=== PATIENT | male | born 1980 | race Caucasian/White ===

== ENCOUNTER 2019-05-10 05:22 | Emergency (ER) | payer SELFPAY ==
--- NOTE | 2019-05-10 06:25 | ER ---
Nurse's Notes [facility] Name: Gilbert Breaux Age: 39 yrs Sex: Male : 1980 Arrival Date: 05/10/2019 Time: 05:23 Bed 13 Private MD: Diagnosis: Superficial injury of head;Alcohol abuse with intoxication Presentation: 05/10 05:20 Presenting complaint: states: that pt was drinking a lot of alcohol and passed fc out, hitting right forehead on ground causing abrasion. Pt very loud and verbally abusive. Transition of care: patient was not received from another setting of care. Onset of symptoms was May 10, 2019 at 04:30. Risk Assessment: Do you want to hurt yourself or someone else? Patient reports no desire to harm self or others. Initial Sepsis Screen: Does the patient meet any 2 criteria? HR > 90 bpm. Yes Does the patient have a suspected source of infection? No. Patient's initial sepsis screen is negative. Care prior to arrival: IV initiated. 18 GA, in the right antecubital area. 05:20 Method Of Arrival: EMS: [facility] 05:20 Acuity: CHARMAINE 2 fc 05:20 Mechanism of Injury: Fall from standing position. Trauma event details: Injury occurred in the [facility], Injury occurred: at home. Injury occurred: May 10, 2019 Injury occurred at: 04:30. Trauma Activation: Alert Physician: ED Physician; Name: Jimmie; Notified At: 05:29; Arrived At: 05:29 Physician: General Surgeon; Name: ; Notified At: 05:29; Arrived At: Physician: Radiology; Name: Lila; Notified At: 05:29; Arrived At: 05:32 Physician: Respiratory; Name: Alex; Notified At: 05:29; Arrived At: 05:31 Physician: Lab; Name: ; Notified At: 05:29; Arrived At: Historical: - Allergies: 05:37 No Known Allergies; fc - Home Meds: 05:37 None [Active]; fc - PMHx: 05:37 None; fc - PSHx: 05:37 right eye surg; right hand surg; fc - Immunization history:: Last tetanus immunization: up to date. - Social history:: Smoking status: Patient uses tobacco products, smokes one pack cigarettes per day. Patient uses alcohol, occasionally. Patient/guardian denies using street drugs. - Immunization history: Last tetanus immunization: - up to date. - Ebola Screening: : Patient negative for fever greater than or equal to 101.5 degrees Fahrenheit, and additional compatible Ebola Virus Disease symptoms Patient denies exposure to infectious person Patient denies travel to an Ebola-affected area in the 21 days before illness onset. Screenin:20 Abuse screen: Denies threats or abuse. Nutritional screening: No deficits noted. fc Tuberculosis screening: No symptoms or risk factors identified. 05:20 Fall Risk Fall in past 12 months (25 points). IV access (20 points). Gait- Impaired (20 jb4 pts.). Mental Status- Overestimates/Forgets Limitations (15 pts.). Total Azevedo Fall Scale indicates High Risk Score (45 or more points). Fall prevention measures have been instituted. Side Rails Up X 2 Placed Close to Nursing Station Frequent Obs/Assessments Occuring Family Present and informed to notify staff if the need to leave the bedside As available patient and family educated on Fall Prevention Program and Strategies. Assessment: 05:40 General: Appears in no apparent distress. uncomfortable, Behavior is agitated, crying, jb4 uncooperative, Smells of alcohol. Pain: Complains of pain in forehead Pain does not radiate. Pain currently is 5 out of 10 on a pain scale. Neuro: Level of Consciousness is awake, alert, Oriented to person, place, time, situation. Cardiovascular: Patient's skin is warm and dry. Respiratory: Airway is patent Respiratory effort is even, unlabored, Respiratory pattern is regular, symmetrical. GI: No signs and/or symptoms were reported involving the gastrointestinal system. : No signs and/or symptoms were reported regarding the genitourinary system. EENT: No signs and/or symptoms were reported regarding the EENT system. Derm: Skin Laceration to the scalp. Skin is pink, warm \T\ dry. Musculoskeletal: Circulation, motion, and sensation intact. Range of motion: intact in all extremities. Injury Description: Laceration sustained to forehead is superficial, 0.5 to 2.5 cm long, not bleeding. 06:12 Reassessment: Patient appears in no apparent distress at this time. Patient and/or jb4 family updated on plan of care and expected duration. Pain level reassessed. Pt verbalized refusal to stay in ED, agreed to take patient home and watch over him. informed of the need for the patient to stay, informed that worsening of symptoms and or could occur, informed of symptoms to watch for and instructed to take patient to the nearest emergency medical facility if worsening of symptoms occurs. Pt's verbalized an understanding of instructions and information, pt and informed of the importance of CT scan to identify possible head bleeds, pt continues to refuse to want to stay in ED, agreed to take him home with friends. pt removed monitoring devices, AMA formed signed by pt's , pt left ED to [facility] waiting area ambulatory with unsteady swaying gait, waited for in [facility]. Vital Signs: 05:20 BP 143 / 91; Pulse 93; Resp 18; Temp 98.4(O); Pulse Ox 96% on R/A; Weight 77.11 kg (R); fc Height 5 ft. 8 in. (172.72 cm) (R); Pain 8/10; 06:02 BP 111 / 48; Pulse 73; Resp 18; Pulse Ox 97% on R/A; jb4 05:20 Body Mass Index 25.85 (77.11 kg, 172.72 cm) fc Luis Coma Score: 05:20 Eye Response: spontaneous(4). Verbal Response: oriented(5). Motor Response: obeys fc commands(6). Total: 15. 06:02 Eye Response: spontaneous(4). Verbal Response: oriented(5). Motor Response: obeys jb4 commands(6). Total: 15. Trauma Score (Adult): 05:20 Eye Response: spontaneous(1); Verbal Response: oriented(1); Motor Response: obeys fc commands(2); Systolic BP: > 89 mm Hg(4); Respiratory Rate: 10 to 29 per min(4); Luis Score: 15; Trauma Score: 12 06:02 Eye Response: spontaneous(1); Verbal Response: oriented(1); Motor Response: obeys jb4 commands(2); Systolic BP: > 89 mm Hg(4); Respiratory Rate: 10 to 29 per min(4); [place] Score: 15; Trauma Score: 12 ED Course: 05:20 Arm band placed on Patient placed in an exam room, on a stretcher. fc 05:20 Patient has correct armband on for positive identification. Bed in low position. Call fc light in reach. Side rails up X2. Pulse ox on. NIBP on. 05:20 Maintain EMS IV. Dressing intact. Good blood return noted. Site clean \T\ dry. Gauge \T\ fc site: 18 gauge to right a/c. 05:20 Patient maintains SpO2 saturation greater than 95% on room air. Thermoregulation: warm fc blanket given to patient. 05:23 Patient arrived in ED. ds1 05:33 Triage completed. fc 05:45 IV discontinued, intact, bleeding controlled, No redness/swelling at site. Pressure jb4 dressing applied, D/c'ed by patient. 05:48 Annika Nolasco F[facility]-C is [facility]. kb 05:48 Bennie Samuel MD is Attending Physician. kb 06:07 Duke Reyes, RN is Primary Nurse. jb4 06:21 No provider procedures requiring assistance completed. jb4 Administered Medications: No medications were administered Outcome: 06:21 AMA AMA form signed jb4 06:21 Condition: unchanged 06:21 Discharge instructions given to significant other, Instructed on discharge instructions, Demonstrated understanding of instructions. 06:26 Patient left the ED. jb4 Signatures: Annika Nolasco FNP-C FNP-Ckb Chretien, Felicia, RN RN Iza Corea ds Duke Reyes, RN SOLA jb
--- NOTE | 2019-05-10 06:26 | EDPHYS ---
Physician Documentation [facility] Name: Gilbert Breaux Age: 39 yrs Sex: Male : 1980 Arrival Date: 05/10/2019 Time: 05:23 Bed 13 Private MD: ED Physician Bennie Samuel HPI: 05/10 06:21 This 39 yrs old Male presents to ER via EMS with complaints of ETOH Abuse. kb 06:21 Details of fall: The patient fell from an upright position, while walking, kb "intoxicated". Onset: The symptoms/episode began/occurred just prior to arrival. Associated injuries: The patient sustained injury to the head, abrasion. Severity of symptoms: At their worst the symptoms were moderate, in the emergency department the symptoms have improved. The patient has not experienced similar symptoms in the past. The patient has not recently seen a physician. states pt got intoxicated last night and fell. States pt passed out for a few minutes so she was concerned and wanted him to be checked out. Reports pt is acting like he normally does when he drinks. No vomiting. . Historical: - Allergies: 05:37 No Known Allergies; fc - Home Meds: 05:37 None [Active]; fc - PMHx: 05:37 None; fc - PSHx: 05:37 right eye surg; right hand surg; fc - Immunization history:: Last tetanus immunization: up to date. - Social history:: Smoking status: Patient uses tobacco products, smokes one pack cigarettes per day. Patient uses alcohol, occasionally. Patient/guardian denies using street drugs. - Immunization history: Last tetanus immunization: - up to date. - Ebola Screening: : Patient negative for fever greater than or equal to 101.5 degrees Fahrenheit, and additional compatible Ebola Virus Disease symptoms Patient denies exposure to infectious person Patient denies travel to an Ebola-affected area in the 21 days before illness onset. ROS: 06:13 Constitutional: Negative for fever, chills, and weight loss, Eyes: Negative for injury, kb pain, redness, and discharge, ENT: Negative for injury, pain, and discharge, Neck: Negative for injury, pain, and swelling, Cardiovascular: Negative for chest pain, palpitations, and edema, Respiratory: Negative for shortness of breath, cough, wheezing, and pleuritic chest pain, Abdomen/GI: Negative for abdominal pain, nausea, vomiting, diarrhea, and constipation, Back: Negative for injury and pain, : Negative for injury, bleeding, discharge, and swelling, MS/Extremity: Negative for injury and deformity, Skin: Negative for injury, rash, and discoloration. 06:13 Neuro: Positive for loss of consciousness. Exam: 06:12 Constitutional: This is a well developed, well nourished patient who is awake, alert, kb and in no acute distress. Head/Face: Normocephalic, atraumatic. ENT: Nares patent. No nasal discharge, no septal abnormalities noted. Tympanic membranes are normal and external auditory canals are clear. Oropharynx with no redness, swelling, or masses, exudates, or evidence of obstruction, uvula midline. Mucous membranes moist. Neck: Trachea midline, no thyromegaly or masses palpated, and no cervical lymphadenopathy. Supple, full range of motion without nuchal rigidity, or vertebral point tenderness. No Meningismus. Chest/axilla: Normal chest wall appearance and motion. Nontender with no deformity. No lesions are appreciated. Cardiovascular: Regular rate and rhythm with a normal S1 and S2. No gallops, murmurs, or rubs. Normal PMI, no JVD. No pulse deficits. Respiratory: Lungs have equal breath sounds bilaterally, clear to auscultation and percussion. No rales, rhonchi or wheezes noted. No increased work of breathing, no retractions or nasal flaring. Abdomen/GI: Soft, non-tender, with normal bowel sounds. No distension or tympany. No guarding or rebound. No evidence of tenderness throughout. MS/ Extremity: Pulses equal, no cyanosis. Neurovascular intact. Full, normal range of motion. Neuro: Awake and alert, GCS 15, oriented to person, place, time, and situation. Cranial nerves II-XII grossly intact. Motor strength 5/5 in all extremities. Sensory grossly intact. Cerebellar exam normal. Normal gait. 06:12 Skin: injury, abrasion(s), small abrasion noted, of the right side of forehead. Vital Signs: 05:20 BP 143 / 91; Pulse 93; Resp 18; Temp 98.4(O); Pulse Ox 96% on R/A; Weight 77.11 kg (R); fc Height 5 ft. 8 in. (172.72 cm) (R); Pain 8/10; 06:02 BP 111 / 48; Pulse 73; Resp 18; Pulse Ox 97% on R/A; jb4 05:20 Body Mass Index 25.85 (77.11 kg, 172.72 cm) fc Luis Coma Score: 05:20 Eye Response: spontaneous(4). Verbal Response: oriented(5). Motor Response: obeys fc commands(6). Total: 15. 06:02 Eye Response: spontaneous(4). Verbal Response: oriented(5). Motor Response: obeys jb4 commands(6). Total: 15. Trauma Score (Adult): 05:20 Eye Response: spontaneous(1); Verbal Response: oriented(1); Motor Response: obeys fc commands(2); Systolic BP: > 89 mm Hg(4); Respiratory Rate: 10 to 29 per min(4); [place] Score: 15; Trauma Score: 12 06:02 Eye Response: spontaneous(1); Verbal Response: oriented(1); Motor Response: obeys jb4 commands(2); Systolic BP: > 89 mm Hg(4); Respiratory Rate: 10 to 29 per min(4); [place] Score: 15; Trauma Score: 12 MDM: 05:48 Patient medically screened. kb 06:12 Data reviewed: vital signs, nurses notes. Data interpreted: Pulse oximetry: on room air kb is 96 %. Interpretation: normal. 06:14 ED course: Pt is obviously intoxicated. Pt awake, alert and oriented. States he does kb not want to be here. convinced pt to stay this long so that he could have the CT that was ordered. Pt decided he didn't want to wait a few minutes after exam and wants to go home. Removed all equipment and armband himself, got dressed and started walking out. states she will bring him back if anything changes. is driving pt. Pt ambulatory with steady gait. . Administered Medications: No medications were administered Disposition: 07:20 Co-signature as Attending Physician, Bennie Samuel MD. [email or web address] Disposition: 05/10/19 06:24 Patient has left against medical advice. Impression: Superficial injury of head, Alcohol abuse with intoxication. - Patients states they are going to Home. - Condition is Stable. Follow up: Emergency Department; When: As needed; Reason: Worsening of condition. Follow up: Private Physician; When: 2 - 3 days; Reason: Recheck today's complaints, Continuance of care, Re-evaluation by your physician. - Problem is new. - Symptoms are unchanged. Signatures: Dispatcher [employer] EDMS Annika Nolasco, PATTERN REPAIR PERSON-C PATTERN REPAIR PERSON-Bennie Fallon MD MD pkl Chretien, Felicia, RN RN Duke Lee RN RN jb4 Corrections: (The following items were deleted from the chart) 06:26 06:24 05/10/2019 06:24 Patients has left against medical advice. Impression: jb4 Superficial injury of head; Alcohol abuse with intoxication. Patient states they are going to Home. Condition is Stable. Follow up: Emergency Department; When: As needed; Reason: Worsening of condition. Follow up: Private Physician; When: 2 - 3 days; Reason: Recheck today's complaints, Continuance of care, Re-evaluation by your physician. Problem is new. Symptoms are unchanged. kb
== END 2019-05-10 06:26 | disposition left against medical advice (07) ==
LOC: ER 05:22
DX: S00.81XA Abrasion of other part of head, initial encounter (principal); W18.30XA Fall on same level, unspecified, initial encounter; Y93.01 Activity, walking, marching and hiking; F10.129 Alcohol abuse with intoxication, unspecified; Z53.29 Procedure and treatment not carried out because of patient's decision for other reasons
CPT/HCPCS: 99284

== ENCOUNTER 2019-06-21 19:19 | Emergency (ER) | payer SELFPAY ==
--- NOTE | 2019-06-21 19:46 | ER ---
Nurse's Notes [facility] Name: Gilbert Breaux Age: 39 yrs Sex: Male : 1980 Arrival Date: 06/21/2019 Time: 19:20 Bed Waiting [facility] MD: Diagnosis: ED Course: 06/21 19:20 Patient arrived in ED. ag3 19:23 Ion Couch NP is PHCP. pm1 19:23 Trenton Farrar MD is Attending Physician. pm1 Administered Medications: No medications were administered Outcome: 19:38 Eloped from waiting room, before seeing physician Eloped prior to triage ea 19:45 Patient left the ED. ea Signatures: Ion Couch NP SWITCHBOARD OPERATOR RECEPTIONIST pm1 Codi Gordon RN RN Cherelle Albert ag3
== END 2019-06-21 19:45 | disposition left against medical advice (07) ==
LOC: ER 19:19
DX: Z53.21 Procedure and treatment not carried out due to patient leaving prior to being seen by health care provider (principal)